=== PATIENT | female | born 1985 | race African-American/Black ===

== ENCOUNTER 2018-11-03 23:26 | Inpatient (IN) | payer MEDICAID ==
[~2018-11-03] VITALS: Ht 167.6 cm; Wt 108.9 kg
[2018-11-03] MEDS ORDERED: SODIUM CHLORIDE 0.9% 1,000 ML IV ONE (23:38)
[2018-11-03] MEDS ORDERED: LEVETIRACETAM 500MG PREMIX 100 ML IV ONE (23:45)
[2018-11-03] MEDS ORDERED: LORAZEPAM 2MG/ML CPJ IV ONE (23:45)
[2018-11-04 00:34] LABS: BASOPHILS % 0.6 % (0.0-2.0); EOSINOPHILS % 0.1 % (0.0-5.0); HEMATOCRIT. 35.8 % (36.0-48.0); HEMOGLOBIN. 12.1 g/dL (12.0-16.0); LYMPHOCYTES % 20.7 % (20.0-50.0); MEAN PLATELET VOLUME 8.5 fl (7.4-10.4); MONOCYTES % 5.8 % (2.0-8.0); NEUTROPHILS % 72.8 % (40.0-76.0); PLATELET 300 x1000/uL (130-400); RED BLOOD CELL COUNT 4.03 mill/uL (4.2-5.4); RED CELL DISTRIBUTION WIDTH 13.5 % (11.6-14.6)
[2018-11-04 00:38] LABS: CHLORIDE 110 mEq/L (98-107)
[2018-11-04 00:42] LABS: ETHANOL BLOOD < 10 mg/dL
[2018-11-04 01:23] LABS: *AMPHETAMINES SCREEN URINE NEGATIVE (NEGATIVE); *BARBITURATES SCREEN URINE NEGATIVE (NEGATIVE); *COCAINE SCREEN URINE NEGATIVE (NEGATIVE)
[2018-11-04 01:24] LABS: METHADONE URINE SCREEN NEGATIVE (NEGATIVE); OPIATES URINE SCREEN NEGATIVE (NEGATIVE); PHENCYCLIDINE URINE SCREEN NEGATIVE (NEGATIVE)
[2018-11-04 01:43] LABS: *BENZODIAZEPINES SCREEN URINE PRESUMTIVE POSITIVE (NEGATIVE); CANNABINOID URINE SCREEN PRESUMTIVE POSITIVE (NEGATIVE)
[2018-11-04 04:02] VITALS: BP 105/50
[2018-11-04 04:30] VITALS: BP 105/50
[2018-11-04 08:00] VITALS: BP 109/46
[2018-11-04] MEDS: LEVETIRACETAM 500 MG in SODIUM CHLORIDE 0.9% 100 ML IV SCH ×2 (09:45→21:08)
[2018-11-04] MEDS: ACETAMINOPHEN 325MG TABLET PO PRN ×2 (11:25→20:03)
[2018-11-04 11:42] LABS: BASOPHILS % 0.3 % (0.0-2.0); EOSINOPHILS % 0.4 % (0.0-5.0); HEMATOCRIT. 36.7 % (36.0-48.0); HEMOGLOBIN. 12.4 g/dL (12.0-16.0); LYMPHOCYTES % 31.5 % (20.0-50.0); MEAN CORPUSCULAR HEMOGLOBIN 30.1 pg (28.0-32.0); MEAN PLATELET VOLUME 8.9 fl (7.4-10.4); MONOCYTES % 7.3 % (2.0-8.0); NEUTROPHILS % 60.5 % (40.0-76.0); PLATELET 286 x1000/uL (130-400); RED BLOOD CELL COUNT 4.12 mill/uL (4.2-5.4); RED CELL DISTRIBUTION WIDTH 13.7 % (11.6-14.6)
[2018-11-04 12:00] VITALS: BP 104/63
[2018-11-04 12:04] LABS: CHLORIDE 113 mEq/L (98-107)
[2018-11-04 12:10] LABS: PHOSPHORUS 2.6 mg/dL (2.5-4.9)
[2018-11-04] MEDS ORDERED: PHENYTOIN SODIUM 1,000 MG in SODIUM CHLORIDE 0.9% 100 ML IV NR (13:00)
[2018-11-04 16:00] VITALS: BP 113/67
[2018-11-04 19:58] VITALS: BP 111/60
[2018-11-04] MEDS: DIPHENHYDRAMINE 25MG CAPSULE PO PRN (22:09)
[2018-11-05 00:05] VITALS: BP 115/63
[2018-11-05 04:00] VITALS: BP 108/62
[2018-11-05] MEDS: DIPHENHYDRAMINE 25MG CAPSULE PO PRN (04:37)
[2018-11-05 08:16] VITALS: BP 100/49
[2018-11-05 11:02] VITALS: BP 100/49
[2018-11-05 12:46] VITALS: BP 103/55
[2018-11-05] MEDS ORDERED: PHENYTOIN SODIUM EXTENDED 100MG CAPSULE PO SCH (21:00)
== END 2018-11-05 15:33 | disposition home or self-care (01) | DRG 53 ==
LOC: ER 23:36 → 5WST 11-04 02:25 → EDBEDREQ 11-04 02:29 → EDBEDREQTM 11-04 02:29 → ENRESERV 11-04 03:21
PROVIDERS: ADMIT Family Medicine Adult Medicine; ATTEND Family Medicine Adult Medicine
DX: G40.901 Epilepsy, unspecified, not intractable, with status epilepticus (principal); E87.8 Other disorders of electrolyte and fluid balance, not elsewhere classified; E83.51 Hypocalcemia; F12.10 Cannabis abuse, uncomplicated; Z91.14 Patient's other noncompliance with medication regimen
CPT/HCPCS: 36415; 70551; 71045; 80185; 80305; 80320; 83605; 83735; 84100; 93970; 96361; 96365; 96375; 99291; J1165; J1953; J2060; J7030; J7050; Q0163; G0480

== ENCOUNTER 2020-09-23 20:48 | Emergency (ER) | payer MEDICAID ==
[~2020-09-23] VITALS: Ht 167.6 cm; Wt 100.0 kg
[2020-09-23 21:17] VITALS: BP 144/84
[2020-09-23] MEDS ORDERED: METOCLOPRAMIDE HCL 10MG TABLET PO ONE (22:30)
[2020-09-23] MEDS ORDERED: IBUPROFEN 400MG TABLET PO ONE (22:30)
[2020-09-23] MEDS ORDERED: TOPUD PO (23:02)
[2020-09-23] MEDS ORDERED: AMOX-424 PO (23:02)
== END 2020-09-24 00:01 | disposition home or self-care (01) ==
LOC: ER 20:48
DX: S00.83XA Contusion of other part of head, initial encounter (principal); S51.052A Open bite, left elbow, initial encounter; S61.250A Open bite of right index finger without damage to nail, initial encounter; M79.18 Myalgia, other site; Y04.1XXA Assault by human bite, initial encounter; Y93.89 Activity, other specified; Y92.89 Other specified places as the place of occurrence of the external cause; Y99.8 Other external cause status
CPT/HCPCS: 73120; 99283; J8597

== ENCOUNTER 2021-03-23 16:39 | Emergency (ER) | payer MEDICARE ==
[~2021-03-23] VITALS: Ht 167.6 cm; Wt 93.0 kg
[~2021-03-23 16:39] MED LIST: AMOX-424 PO; TOPUD PO
[2021-03-23] MEDS ORDERED: SODIUM CHLORIDE 0.9% 1,000 ML IV ONE (17:30)
[2021-03-23 17:43] LABS: BASOPHILS % 0.5 % (0.0-2.0); EOSINOPHILS % 0.3 % (0.0-5.0); HEMATOCRIT. 39.3 % (36.0-48.0); HEMOGLOBIN. 13.3 g/dL (12.0-16.0); LYMPHOCYTES % 30.7 % (20.0-50.0); MEAN CORPUSCULAR VOLUME 88.7 fL (81.0-99.0); MEAN PLATELET VOLUME 8.8 fl (7.4-10.4); NEUTROPHILS % 61.5 % (40.0-76.0); PLATELET 302 x1000/uL (130-400); RED BLOOD CELL COUNT 4.43 mill/uL (4.2-5.4); RED CELL DISTRIBUTION WIDTH 13.2 % (11.6-14.6)
[2021-03-23 17:50] LABS: CHLORIDE 111 mEq/L (98-107)
[2021-03-23 17:55] LABS: ETHANOL BLOOD < 10 mg/dL
[2021-03-23 18:00] LABS: CREATINE KINASE 107 IU/L (26-192)
[2021-03-23] MEDS ORDERED: ACETAMINOPHEN 325MG TABLET PO NR (18:00)
[2021-03-23 18:07] LABS: CLARITY URINE CLEAR (CLEAR); COLOR URINE YELLOW (YELLOW); KETONES URINE NEGATIVE (NEGATIVE); LEUKOCYTE ESTERASE URINE NEGATIVE (NEGATIVE); NITRITE URINE NEGATIVE (NEGATIVE); OCCULT BLOOD URINE NEGATIVE (NEGATIVE); PH URINE 7.5 (4.5-8.0); PROTEIN URINE NEGATIVE (NEGATIVE); SPECIFIC GRAVITY URINE 1.007 (1.005-1.030); UROBILINOGEN URINE 0.2 E.U./dL (0.2-1.0)
[2021-03-23 18:08] LABS: HCG SCREEN NEGATIVE
[2021-03-23 18:44] LABS: *AMPHETAMINES SCREEN URINE NEGATIVE (NEGATIVE); *BARBITURATES SCREEN URINE NEGATIVE (NEGATIVE); *BENZODIAZEPINES SCREEN URINE NEGATIVE (NEGATIVE)
[2021-03-23 18:45] LABS: *COCAINE SCREEN URINE NEGATIVE (NEGATIVE); OPIATES URINE SCREEN NEGATIVE (NEGATIVE); PHENCYCLIDINE URINE SCREEN NEGATIVE (NEGATIVE)
[2021-03-23 18:48] LABS: METHADONE URINE SCREEN NEGATIVE (NEGATIVE)
[2021-03-23 18:49] LABS: CANNABINOID URINE SCREEN PRESUMTIVE POSITIVE (NEGATIVE)
[2021-03-23 20:24] VITALS: BP 133/62
== END 2021-03-23 20:29 | disposition home or self-care (01) ==
LOC: EDBD 16:39 → ER 16:39
DX: R55 Syncope and collapse (principal); G40.909 Epilepsy, unspecified, not intractable, without status epilepticus; Z79.899 Other long term (current) drug therapy; E86.0 Dehydration
CPT/HCPCS: 36415; 70450; 71045; 80053; 80305; 80320; 81003; 81025; 82550; 82962; 83605; 84703; 85025; 93005; 96360; 99285; J7030; G0480